=== PATIENT | female | born 1970 | race Hispanic/Latino ===

== ENCOUNTER → 2020-05-23 | Day surgery (SDC) | payer BC, OTHER ==
[~2020-05-23] MED LIST: BUPIVACAINE HCL 0.5% INJ 30 ML VIAL INJ ONE; CEFAZOLIN SOD 1 GM/NS 50ML 50 ML IV ONE; DEXAMETHASONE SOD PHOS INJ 4 MG/ML VIAL ONE; FENTANYL CITRATE/PF 100MCG/2 ML INJ ONE; KETOROLAC TROMETHAMINE 30 MG/ML VIAL ONE; LEVOXYL150 MCG PO; LIDOCAINE HCL 2% LOCAL INJ 5 ML SDV VIAL INJ ONE; LISINOPRIL10 MG PO; MIDAZOLAM HCL 2 MG/2 ML VIAL ONE; MUPIROCIN 2% OINT 22 GM TUBE ONE; OMEPRAZOLE40 MG PO; ONDANSETRON HCL INJ 2MG/ML 2ML 2 MG/ML VIAL ONE; PROPOFOL IV EMULSION 10 MG/ML 20 ML VIAL ONE; PROPRANOLOL HCL10 MG PO; SEVOFLURANE INHAL SOLN 250 ML PEN BTL ONE; SYNTHROID25 MCG
--- NOTE | 2020-05-23 07:15 | NUR ---
SPIRITUAL CARE - Pre-Surgery Assessment: Pt in bed. Pt reported supportive attention from family and friends. Intervention: Ingredient Specialist provided pastoral presence, hospitality, and sympathetic listening. Acquainted pt with availability of rod bending machine operator while hospitalized. Outcome: Pt expressed appreciation for visit. No need for follow up indicated at this time. STEV[facility] Spiritual Care Department O: [phone]
[2020-05-23 09:05] VITALS: BP 119/73
--- NOTE | 2020-05-23 11:30 | Operative Report ---
DATE OF PROCEDURE: 05/23/2020 SURGEON: Shankar Luis MD PREOPERATIVE DIAGNOSIS: Left de Quervain's tenosynovitis. POSTOPERATIVE DIAGNOSIS: Left de Quervain's tenosynovitis, accessory compartment. PROCEDURES: Left de Quervain's release and release of accessory compartment. ANESTHESIA: General. HISTORY: The patient is a 49-year-old female, who has left de Quervain's and has been recalcitrant to a corticosteroid injection and splinting. The risks, benefits, and alternatives were discussed with the patient. She is prepared to undergo the procedure as outlined. PROCEDURE IN DETAIL: The patient was marked preoperatively in the holding area. She was brought to the operating theater and after the induction of adequate general anesthesia, she was prepped and draped in a supine position and a time-out was performed. An oblique incision was marked out over the left first dorsal compartment. The left upper extremity was exsanguinated and the tourniquet was inflated to a pressure of 250 mmHg. The incision was made through the skin and the superficial subcutaneous tissues. Dissection in the subcutaneous plane revealed the major branches of the radial sensory nerve and these were identified, protected and retracted out of the way. The first dorsal compartment was noted to be bulging and it was incised longitudinally and freeing up the APB tendon. Once this tendon had been completely freed, the APL tendon was identified proximally and it was traced and found to go through an accessory compartment. Her accessory compartment was then released allowing the APL tendon to be completely free. The wound was then irrigated with bacteriostatic saline and closed with a 5-0 nylon in an interrupted horizontal mattress fashion. A Marcaine field block was performed at the operative site. The tourniquet was deflated. All the fingers pinked up nicely and a sterile bulking Ball bandage was applied. The patient tolerated the procedure well, brought to recovery room in satisfactory condition and discharged with a postoperative instruction sheet as well as a followup appointment. Shankar Luis MD ER/MODL /[id number]
== END | disposition home or self-care (01) ==
LOC: OR 05:58
PROVIDERS: ATTEND Plastic Surgery
DX: M65.4 Radial styloid tenosynovitis [de Quervain] (principal); G47.33 Obstructive sleep apnea (adult) (pediatric); J45.909 Unspecified asthma, uncomplicated; I10 Essential (primary) hypertension; E03.9 Hypothyroidism, unspecified; K21.9 Gastro-esophageal reflux disease without esophagitis; R00.1 Bradycardia, unspecified; Z01.810 Encounter for preprocedural cardiovascular examination; Z01.812 Encounter for preprocedural laboratory examination; Z11.59 Encounter for screening for other viral diseases
CPT/HCPCS: 25000; 93005; J0690; J1100; J1885; J2001; J2250; J2405; J2704; J3010; U0002